=== PATIENT | female | born 1990 | race Caucasian/White ===

== ENCOUNTER 2021-10-13 18:59 | Emergency (ER) | payer BC, SELFPAY ==
[2021-10-13 19:11] VITALS: BP 143/90; PULSE 90; RESP 16; TEMP 36.6; O2SAT 99; BMI 27.9
--- NOTE | 2021-10-13 19:34 | W.ED.BACK ---
HPI - Back Pain/Injury General: Chief Complaint: Back Pain/Injury Stated Complaint: upper back pain Time Seen by Provider: 10/13/21 19:15 History of Present Illness: Patient complains about trapezius pain both sides after doing some heavy lifting this weekend while attending [facility] [employer] [facility]. 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 Patient states she was seen in urgent care at [place] where she lives this week and got a steroid shot and a muscle relaxer and she was good for couple days but then she reinjured herself today. She has a history of chronic neck and back problems. Associated symptoms: Deny abdominal pain, chills, fever(s), nausea or vomiting Review of Systems Const: Denies: fever(s), chills or body aches Eyes: Denies: eye discomfort ENMT: Denies: throat pain Card: Denies: chest pain Resp: Denies: dyspnea GI: Denies: abdominal pain, nausea or vomiting Musc: Reports: back pain (Reinjured lifting heavy boxes this weekend.) Skin/Breast: Denies: rash Neuro: Denies: headache(s) Psych: Denies: depression or suicidal ideation Physical Exam Const: COMMON NORMALS: no acute distress, patient oriented x3 and alert HENMT: COMMON NORMALS: normocephalic and external ears normal HEAD & SCALP: normocephalic EXTERNAL EAR: Yes external ears normal Eye: COMMON NORMALS: EOMs intact bilaterally Neck/C-Spine: COMMON NORMALS: no JVD CERVICAL SPINE: Yes cervical ROM normal, No pain with cervical ROM, No Cervical spine tenderness, No Paracervical muscle tenderness and Yes Trapezius muscle tenderness Resp: COMMON NORMALS: normal respiratory effort and No use of accessory muscles Cardio: COMMON NORMALS: no JVD GI: INSPECTION: Yes normal to inspection Extremity: COMMON NORMALS: normal to inspection and full ROM Neuro: COMMON NORMALS: patient oriented x3 SENSORIUM/ORIENTATION: Yes alert Psych: COMMON NORMALS: mental status grossly normal Skin: COMMON NORMALS: no rashes or lesions noted GENERAL SKIN EXAM: no rashes or lesions noted Course Vital Signs: Vital signs: Vital Signs Temperature 97.9 F 10/13/21 19:11 Pulse Rate 90 10/13/21 19:11 Respiratory Rate 16 10/13/21 19:11 Blood Pressure 143/90 10/13/21 19:11 Pulse Oximetry 99 04/23/22 19:11 MDM - Back Pain/Injury Medical Decision Making Trapezius pain bilateral. History of chronic neck and back problems has been treated multiple times past. Patient given tramadol for pain relief per patient request this evening to take,. Says she is taken before and she is had no difficulty with that. Said she had a febrile seizure as a kid in the past and she is told that possibly could flare back up with tramadol. Patient has appoint with primary care on Friday in [place]. Discharge Plan Discharge Patient Disposition: Home Clinical Impression: Strain of cervical portion of both trapezius muscles Condition: Stable Prescriptions: New methocarbamol 750 mg tablet 750 mg PO TID PRN (Reason: muscle pain and spasms) Qty: 7 0RF Voltaren Arthritis Pain 1 % gel 4 g topical QID Qty: 100 0RF Discharge Orders: Discharge ED (Routine); Ordered 10/13/21 Ordered By: Deon Escobedo Discharge Diet: Usual diet Discharge Activity: Increase activity as tolerated Activity Restrictions/Additional Instructions: Keep appointment with primary care provider towards the week. Can alternate ice and moist heat to area. No heavy lifting for next 3 to 4 weeks. Coding Level of Care Code ED Orthodontic Treatment Coordinator for Zina Rose
[2021-10-13] MEDS: ketorolac 60 mg/2 mL INJ IM (19:49)
[2021-10-13] MEDS: CELEcoxib 200 mg Capsule 400 MG PO (19:50)
[2021-10-13] MEDS: TRAMadol 50 mg Tablet 100 MG PO (19:50)
== END 2021-10-13 20:03 | disposition home or self-care (01) ==
PROVIDERS: Emergency Provider Nurse Practitioner Family
DX: S16.1XXA Strain of muscle, fascia and tendon at neck level, initial encounter (principal); X50.0XXA Overexertion from strenuous movement or load, initial encounter
CPT/HCPCS: 96372; 99283; J1885